=== PATIENT | male | born 1985 | race Caucasian/White ===

== ENCOUNTER 2016-10-05 03:44 | Emergency (ER) | payer SELFPAY ==
[2016-10-05] MEDS ORDERED: Ibuprofen 800 MG TAB ONE (04:05)
== END 2016-10-05 04:11 | disposition home or self-care (01) ==
LOC: NAV ERS 03:44
DX: B34.9 Viral infection, unspecified (principal); F17.210 Nicotine dependence, cigarettes, uncomplicated
CPT/HCPCS: 99283